=== PATIENT | female | born 1960 | race Asian ===

== ENCOUNTER 2017-05-10 11:57 | Day surgery (SDC) | payer OTHER ==
[2017-05-10] MEDS ORDERED: FENTAnyl 50 MCG/ML VIAL (14:30)
[2017-05-10] MEDS ORDERED: MIDAZOLAM 1 MG/ML 2 ML INJ ×2 (14:30)
== END 2017-05-10 19:45 | disposition home or self-care (01) ==
LOC: GIL 11:57
DX: Z12.11 Encounter for screening for malignant neoplasm of colon (principal); K21.9 Gastro-esophageal reflux disease without esophagitis; K29.70 Gastritis, unspecified, without bleeding; D12.5 Benign neoplasm of sigmoid colon; K57.90 Diverticulosis of intestine, part unspecified, without perforation or abscess without bleeding; K64.8 Other hemorrhoids; E11.9 Type 2 diabetes mellitus without complications; I10 Essential (primary) hypertension
CPT/HCPCS: 43239; 87081; 88305

== ENCOUNTER 2017-10-30 19:51 | Inpatient (IN) | payer OTHER ==
[2017-10-30 23:02] LABS: CREATINE KINASE 71 IU/L (23-200)
[2017-10-30 23:15] LABS: CK INDEX 1.5; TROPONIN-I 0.011 ng/ml (0.000-0.120)
[2017-10-31] MEDS: ACCU-CHEK XX ×6 (01:00→21:07)
[2017-10-31] MEDS ORDERED: ACETAMINOPHEN 325 MG TAB PO (05:00)
[2017-10-31 06:09] LABS: CREATINE KINASE 60 IU/L (23-200)
[2017-10-31 06:20] LABS: CK INDEX 1.5; CK-MB 0.89 ng/ml (0.0-2.4); TROPONIN-I < 0.010 ng/ml (0.000-0.120)
[2017-10-31] MEDS ORDERED: NITROGLYCERIN (SL) 0.4 MG TAB SL (09:00)
[2017-10-31] MEDS ORDERED: NACL 0.9% 3 ML SYG IV (09:00)
[2017-10-31] MEDS: ENOXAPARIN 30 MG/0.3 ML SYG SC ×2 (09:00→21:00)
[2017-10-31 10:05] LABS: CREATINE KINASE 53 IU/L (23-200)
[2017-10-31 10:18] LABS: CK INDEX 1.4; CK-MB 0.72 ng/ml (0.0-2.4); TROPONIN-I < 0.010 ng/ml (0.000-0.120)
[2017-10-31] MEDS: ASPIRIN 81 MG TAB PO (11:10)
[2017-10-31] MEDS: LOSARTAN 25 MG TAB PO (11:12)
[2017-10-31] MEDS: metFORMIN 500 MG TAB PO (12:17)
[2017-10-31] MEDS ORDERED: GLUCOSE GEL 15 GRAM TUBE PO ×2 (14:00)
[2017-10-31] MEDS ORDERED: GLUCAGON 1 MG INJ IM (14:00)
[2017-10-31] MEDS ORDERED: MAGNESIUM HYDROXIDE 30ML CUP PO (14:00)
[2017-10-31] MEDS ORDERED: ONDANSETRON 4 MG INJ IV (14:00)
[2017-10-31] MEDS ORDERED: morphine 2 MG INJ IV (14:00)
[2017-10-31] MEDS ORDERED: DEXTROSE 50% 50 ML SYRINGE IV ×2 (14:00)
[2017-10-31] MEDS ORDERED: GLUCOSE GEL 15 GRAM TUBE BUCCAL (14:00)
[2017-10-31] MEDS ORDERED: DOCUSATE SODIUM 100 MG CAP PO (14:00)
[2017-10-31] MEDS: PANTOPRAZOLE (EC) 40 MG TAB PO (14:55)
[2017-10-31] MEDS: NITROGLYCERIN 0.2 MG/HR PATCH TRANSDERM ×2 (14:57→22:00)
[2017-10-31] MEDS: ACETAMINOPHEN 325 MG TAB PO (14:57)
[2017-10-31 15:03] LABS: CREATINE KINASE 63 IU/L (23-200)
[2017-10-31 15:15] LABS: CK INDEX 1.2; CK-MB 0.75 ng/ml (0.0-2.4); TROPONIN-I < 0.010 ng/ml (0.000-0.120)
[2017-10-31] MEDS ORDERED: HYDROCODONE/APAP (5/325) TAB PO (15:30)
[2017-10-31] MEDS: ATORVASTATIN 10 MG TAB PO (21:08)
[2017-11-01] MEDS: ACCU-CHEK XX ×5 (01:00→17:00)
[2017-11-01] MEDS: PANTOPRAZOLE (EC) 40 MG TAB PO (05:56)
[2017-11-01] MEDS: NITROGLYCERIN 0.2 MG/HR PATCH TRANSDERM ×3 (05:56→13:35)
[2017-11-01 06:14] LABS: ADD MAN DIFF? NO; HAAIG REFLEX REFLEX FILED
[2017-11-01 06:22] LABS: BASOPHIL # 0.1 10^3/ul (0.0-0.1); BASOPHILS % 0.6 % (0.0-2.0); EOSINOPHILS # 0.1 10^3/ul (0.0-0.5); EOSINOPHILS % 0.8 % (0.0-7.0); HEMATOCRIT 41.4 % (37.0-47.0); HEMOGLOBIN 13.5 g/dl (12.0-16.0); IMMATURE GRANS #M 0.03 10^3/ul; IMMATURE GRANS % (M) 0.4 %; LYMPHOCYTES # 2.5 10^3/ul (0.8-2.9); LYMPHOCYTES % 32.8 % (15.0-51.0); MEAN CORPUSCULAR HEMOGLOBIN 29.5 pg (29.0-33.0); MEAN CORPUSCULAR HGB CONC 32.6 g/dl (32.0-37.0); MEAN CORPUSCULAR VOLUME 90.6 fl (82.0-101.0); MEAN PLATELET VOLUME 9.2 fl (7.4-10.4); MONOCYTE # 0.4 10^3/ul (0.3-0.9); MONOCYTES % 5.7 % (0.0-11.0); NEUTROPHIL # 4.6 10^3/ul (1.6-7.5); NEUTROPHILS % 59.7 % (39.0-77.0); PLATELET COUNT 270 10^3/UL (140-415); RED BLOOD COUNT 4.57 10^6/ul (4.20-5.40); RED CELL DISTRIBUTION WIDTH 12.7 % (11.5-14.5)
[2017-11-01 06:22] LABS: WHITE BLOOD COUNT 7.7 10^3/ul (4.8-10.8)
[2017-11-01 06:35] LABS: HEMOGLOBIN A1C 6.6 % (0-5.9)
[2017-11-01 06:36] LABS: INR 0.88; PT RATIO 0.9
[2017-11-01 06:49] LABS: ALANINE AMINOTRANSFERASE 43 IU/L (13-69); ALBUMIN 4.1 g/dl (3.3-4.9); ALBUMIN/GLOBULIN RATIO 1.24; ALKALINE PHOSPHATASE 110 IU/L (42-121); ANION GAP 13 (8-16); ASPARTATE AMINO TRANSFERASE 28 IU/L (15-46); BILIRUBIN,INDIRECT 0.4 mg/dl (0-1.1); BILIRUBIN,TOTAL 0.4 mg/dl (0.2-1.3); BLOOD UREA NITROGEN 17 mg/dl (7-20); CALCIUM 9.5 mg/dl (8.4-10.2); CARBON DIOXIDE 28 mmol/L (21-31); CHLORIDE 104 mmol/L (97-110); CREATININE 0.56 mg/dl (0.44-1.00); GLUCOSE 115 mg/dl (70-220); MAGNESIUM 1.9 mg/dl (1.7-2.5); PHOSPHORUS 5.1 mg/dl (2.5-4.9); SODIUM 141 mmol/L (135-144); TOTAL PROTEIN 7.4 g/dl (6.1-8.1)
[2017-11-01 06:50] LABS: TROPONIN-I < 0.010 ng/ml (0.000-0.120)
[2017-11-01 07:09] LABS: THYROID STIMULATING HORMONE 0.789 MIU/L (0.465-4.680)
[2017-11-01 07:11] LABS: HEPATITIS B SURFACE ANTIGEN NEGATIVE (NEGATIVE)
[2017-11-01 07:29] LABS: HEPATITIS B CORE ANTIBODY NEGATIVE (NEGATIVE); HEPATITIS C VIRAL ANTIBODY NEGATIVE (NEGATIVE)
[2017-11-01] MEDS: ASPIRIN 81 MG TAB PO (09:23)
[2017-11-01] MEDS: LOSARTAN 25 MG TAB PO (09:24)
[2017-11-01] MEDS: ENOXAPARIN 30 MG/0.3 ML SYG SC (09:25)
[2017-11-01] MEDS: REGADENOSON 0.4 MG/5 ML SYG (13:10)
[2017-11-01] MEDS: FLUOXETINE 20 MG CAP PO (16:20)
== END 2017-11-01 18:17 | disposition home or self-care (01) | DRG 313 ==
LOC: 6WM 19:51
PROVIDERS: Family Medicine
DX: R07.9 Chest pain, unspecified (principal); E11.9 Type 2 diabetes mellitus without complications; I10 Essential (primary) hypertension; E78.5 Hyperlipidemia, unspecified; R20.0 Anesthesia of skin; E88.81 Metabolic syndrome and other insulin resistance; Z79.84 Long term (current) use of oral hypoglycemic drugs; Z79.82 Long term (current) use of aspirin; Z87.891 Personal history of nicotine dependence; Z90.49 Acquired absence of other specified parts of digestive tract; Z82.49 Family history of ischemic heart disease and other diseases of the circulatory system
CPT/HCPCS: 78452; 80053; 82550; 82553; 82962; 83036; 83735; 84100; 84443; 84484; 85025; 85610; 86704; 86709; 86803; 87340; 93005; 93017; 93306